=== PATIENT | male | born 1965 | race Caucasian/White ===

== ENCOUNTER → 2020-06-01 | Outpatient (CLI) | payer BC ==
--- NOTE | 2020-06-01 13:15 | RAD ---
EXAM DESCRIPTION: Knee,Left Complete CLINICAL HISTORY: PAIN IN LEFT KNEE COMPARISON: February 17, 2015 IMPRESSION: 4 standing views of the left knee show knee arthroplasty with cement fixation of the tibial femoral components. No hardware failure or loosening. No joint effusion. Mild soft tissue swelling anterior to the patella. Probable accessory center of ossification lateral to the patella seen on sunrise view. Electronically signed by: Hugo Ingram MD 06/01/2020 1:14 PM [facility]
--- NOTE | 2020-06-01 13:16 | RAD ---
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 No acute fracture identified. Minimal ossification projecting along the inferior margin of the left ischial tuberosity which can indicate age-indeterminate left hamstring tendon origin injury. MRI pelvis could better evaluate as clinically indicated. Electronically signed by: Jared Logan MD 06/01/2020 1:14 PM [facility]
== END ==
LOC: RAD 08:41
PROVIDERS: ATTEND Orthopaedic Surgery
DX: M16.0 Bilateral primary osteoarthritis of hip (principal); M89.8X8 Other specified disorders of bone, other site; M79.9 Soft tissue disorder, unspecified; Z96.652 Presence of left artificial knee joint